=== PATIENT | female | born 1990 | race Caucasian/White ===

== ENCOUNTER 2017-02-04 12:58 | Observation (INO) | payer OTHER ==
[2017-02-04] VITALS (8 sets, daily range): BP systolic 120–145; BP diastolic 63–80; PULSE 65–98; TEMP 98–98.8
[~2017-02-04] VITALS: Ht 165.1 cm; Wt 98.0 kg
[~2017-02-04 12:58] MED LIST: FERROUS SU325 MG/TAB PO; MOTRIN 800800 MG/TAB PO; PERCOCET 325 MG1 TA2 PO; PRENATAL PLUS PO; PRENATAL PO; PROZAC 20MG20 MG PO; SENOKOT S 50 MG1 TAB PO; ZANTAC 150MG T150 MG PO
[2017-02-04] MEDS ORDERED: SPRINTEC 35 MCG1 TAB PO (13:10)
[2017-02-04] MEDS ORDERED: PHENTERMINE15 MG PO (13:10)
[2017-02-04] MEDS ORDERED: SEROQUEL 1100 MG/TAB PO (13:10)
[2017-02-04 14:23] LABS: BASO % 0.3 % (0.0-2.0); EOS # 0.2 (0.0-0.7); EOS % 2.3 % (0-4.0); GRAN # 7.2 (1.4-6.5); GRAN % 70.9 % (42.2-75.2); HEMATOCRIT 40.8 % (37.0-47.0); HEMOGLOBIN 13.8 g/dl (12.5-16.0); LYMPH # 1.9 (1.2-3.4); LYMPH % 18.7 % (20.0-51.0); MEAN CELL VOLUME 88 fl (80.0-100.0); MEAN CORPUSCULAR HEMOGLOBIN 30 pg (27.0-31.0); MEAN CORPUSCULAR HGB CONC 34 g/dl (33.0-37.0); MONO # 0.8 (0.1-0.6); MONO % 7.5 % (1.7-9.3); PLATELET COUNT 232 K/mm3 (130-400); RED BLOOD COUNT 4.63 M/mm3 (4.10-5.30); REDCELL DISTRIBUTION WIDTH-CV 12.9 % (11.5-14.5); WHITE BLOOD COUNT 10.2 K/mm3 (4.8-10.8)
[2017-02-04 14:33] LABS: PH 6 (5-8); SQUAMOUS EPITHELIAL 0-2 /hpf; URINE APPEARANCE Clear; URINE BACTERIA Rare /hpf; URINE BILIRUBIN Negative (NEGATIVE); URINE BLOOD Negative (NEGATIVE); URINE COLOR Straw; URINE GLUCOSE Negative (NEGATIVE); URINE KETONE Negative (NEGATIVE); URINE RBC 0-2 /hpf; URINE UROBILINOGEN Negative (NEGATIVE); URINE WBC 0-2 /hpf
[2017-02-04 14:36] LABS: ADJUSTED CALCIUM 9.1 mg/dL (8.4-10.2); ALBUMIN 4.2 gm/dL (3.5-5.0); BILIRUBIN,TOTAL 0.8 mg/dL (0.0-1.0); C-REACTIVE PROTEIN 1.8 mg/dL (0.0-0.9); CALCIUM 9.3 mg/dL (8.4-10.2); CREATININE, serum 0.72 mg/dL (0.52-1.25); POTASSIUM 3.7 mmol/L (3.4-5.0); TOTAL PROTEIN 7.7 gm/dL (6.4-8.2)
[2017-02-05 02:20] VITALS: BP 97/45; PULSE 93; TEMP 98.1
[2017-02-05 06:13] VITALS: BP 111/54; BP 115/65; PULSE 54; PULSE 74; TEMP 98
[2017-02-05] MEDS ORDERED: PERCOCET 325 MG1 TA2 PO (07:39)
[2017-02-05 08:36] VITALS: BP 99/40; PULSE 77; TEMP 98
== END 2017-02-05 09:30 | disposition home or self-care (01) ==
LOC: COL.ER 12:58 → SURG 16:45
PROVIDERS: Physician Assistant
DX: K35.80 Unspecified acute appendicitis (principal)
CPT/HCPCS: G0378; J1170; J1885; J2270; J2405; J2710; J2765; J3010; J7030; J7120; Q9967

== ENCOUNTER → 2017-03-01 | Outpatient (CLI) | payer BC ==
[~2017-03-01] MED LIST changes: +PHENTERMINE15 MG PO; +SEROQUEL 1100 MG/TAB PO; +SPRINTEC 35 MCG1 TAB PO
== END ==
LOC: COL.RAD 08:10
DX: R51 Headache (principal)
CPT/HCPCS: A9585

== ENCOUNTER 2018-12-08 09:13 | Emergency (ER) | payer BC ==
[~2018-12-08] VITALS: Ht 165.1 cm; Wt 106.6 kg
[2018-12-08 09:19] VITALS: TEMP 97.5
[2018-12-08 10:05] LABS: BASO # 0.1 (0.0-0.2); BASO % 0.7 % (0.0-2.0); EOS # 0.8 (0.0-0.7); EOS % 10.7 % (0-4.0); GRAN # 4.5 (1.4-6.5); GRAN % 60.1 % (42.2-75.2); HEMATOCRIT 44.2 % (37.0-47.0); HEMOGLOBIN 14.6 g/dl (12.5-16.0); LYMPH # 1.6 (1.2-3.4); LYMPH % 21.4 % (20.0-51.0); MEAN CELL VOLUME 89 fl (80.0-100.0); MEAN CORPUSCULAR HEMOGLOBIN 29 pg (27.0-31.0); MEAN CORPUSCULAR HGB CONC 33 g/dl (33.0-37.0); MEAN PLATELET VOLUME 9.2 fl (7.4-10.4); MONO # 0.5 (0.1-0.6); PLATELET COUNT 231 K/mm3 (130-400); RED BLOOD COUNT 4.97 M/mm3 (4.10-5.30); REDCELL DISTRIBUTION WIDTH-CV 13.8 % (11.5-14.5)
[2018-12-08 10:19] LABS: ALBUMIN 4.2 gm/dL (3.5-5.0); BILIRUBIN,TOTAL 0.6 mg/dL (0.0-1.0); CREATININE, serum 0.73 mg/dL (0.52-1.25); POTASSIUM 3.6 mmol/L (3.4-5.0); TOTAL PROTEIN 8.2 gm/dL (6.4-8.2)
[2018-12-08 10:37] LABS: COLLECTION METHOD CLEAN CATCH
[2018-12-08 10:44] LABS: PH 6 (5-8); SQUAMOUS EPITHELIAL 0-2 /hpf; URINE APPEARANCE Clear; URINE BACTERIA None Seen /hpf; URINE BILIRUBIN Negative (NEGATIVE); URINE BLOOD Negative (NEGATIVE); URINE COLOR Amber; URINE GLUCOSE Negative (NEGATIVE); URINE KETONE Negative (NEGATIVE); URINE LEUKOCYTE ESTERASE Negative (NEGATIVE); URINE NITRATE Positive (NEGATIVE); URINE PROTEIN(semi-quant) Negative (NEGATIVE); URINE RBC 0-2 /hpf; URINE UROBILINOGEN Negative (NEGATIVE)
[2018-12-08 12:03] VITALS: BP 116/96; PULSE 88
== END 2018-12-08 12:04 | disposition home or self-care (01) ==
LOC: COL.ER 09:13
PROVIDERS: Nurse Practitioner
DX: R10.84 Generalized abdominal pain (principal); R53.81 Other malaise; R53.82 Chronic fatigue, unspecified; F32.9 Major depressive disorder, single episode, unspecified; F41.9 Anxiety disorder, unspecified; F43.10 Post-traumatic stress disorder, unspecified; Z90.89 Acquired absence of other organs; Z98.890 Other specified postprocedural states; Z88.5 Allergy status to narcotic agent
CPT/HCPCS: J2405; J3010; J7030

== ENCOUNTER 2019-08-26 11:18 | Emergency (ER) | payer BC ==
[~2019-08-26] VITALS: Ht 167.6 cm; Wt 106.8 kg
[2019-08-26 11:22] VITALS: BP 132/76
[2019-08-26] MEDS ORDERED: IMITREX 5MGNAS NS (13:24)
[2019-08-26 14:02] VITALS: PULSE 80; TEMP 97.7
== END 2019-08-26 14:02 | disposition home or self-care (01) ==
LOC: COL.ER 11:18
DX: R51 Headache (principal)
CPT/HCPCS: J0780; J1170; J1200; J1885; J7030

== ENCOUNTER → 2019-09-03 | Outpatient (CLI) | payer BC ==
[~2019-09-03] MED LIST changes: +IMITREX 5MGNAS NS
== END ==
LOC: COL.RAD 07:58
DX: G44.53 Primary thunderclap headache (principal)
CPT/HCPCS: A9585

== ENCOUNTER 2019-09-11 18:15 | Emergency (ER) | payer BC ==
[~2019-09-11] VITALS: Ht 165.1 cm; Wt 109.1 kg
[2019-09-11 18:50] LABS: COLLECTION METHOD CLEAN CATCH
[2019-09-11] MEDS ORDERED: MULTI VITAMINS1 TAB PO (18:55)
[2019-09-11 18:57] LABS: BASO # 0.1 (0.0-0.2); BASO % 0.4 % (0.0-2.0); EOS # 0.2 (0.0-0.7); EOS % 1.7 % (0-4.0); GRAN # 7.8 (1.4-6.5); GRAN % 64.1 % (42.2-75.2); HEMATOCRIT 40.4 % (37.0-47.0); HEMOGLOBIN 13.8 g/dl (12.5-16.0); LYMPH # 3.2 (1.2-3.4); LYMPH % 26.5 % (20.0-51.0); MEAN CELL VOLUME 88 fl (80.0-100.0); MEAN CORPUSCULAR HEMOGLOBIN 30 pg (27.0-31.0); MEAN CORPUSCULAR HGB CONC 34 g/dl (33.0-37.0); MEAN PLATELET VOLUME 9.2 fl (7.4-10.4); MONO # 0.9 (0.1-0.6); MONO % 7.1 % (1.7-9.3); PLATELET COUNT 305 K/mm3 (130-400); RED BLOOD COUNT 4.57 M/mm3 (4.10-5.30)
[2019-09-11 19:00] LABS: PH 8 (5-8); SQUAMOUS EPITHELIAL 0-2 /hpf; URINE APPEARANCE Clear; URINE BACTERIA None Seen /hpf; URINE BILIRUBIN Negative (NEGATIVE); URINE BLOOD Negative (NEGATIVE); URINE COLOR Straw; URINE GLUCOSE Negative (NEGATIVE); URINE KETONE Negative (NEGATIVE); URINE LEUKOCYTE ESTERASE Negative (NEGATIVE); URINE NITRATE Negative (NEGATIVE); URINE PROTEIN(semi-quant) Negative (NEGATIVE); URINE RBC 0-2 /hpf; URINE UROBILINOGEN Negative (NEGATIVE)
[2019-09-11 19:07] LABS: ALANINE AMINOTRANSFERASE 21 U/L (9-52); ALBUMIN 4.9 gm/dL (3.5-5.0); ALKALINE PHOSPHATASE 95 U/L (50-136); ANION GAP 14 mmol/L (7-16); AST,SGOT 28 U/L (15-37); BILIRUBIN,TOTAL 0.5 mg/dL (0.0-1.0); BLOOD UREA NITROGEN 10 mg/dL (7-17); CALCIUM 9.8 mg/dL (8.4-10.2); CARBON DIOXIDE 24 mmol/L (22-30); CHLORIDE 103 mmol/L (98-107); CREATININE, serum 0.74 (0.52-1.25); GLUCOSE 109 mg/dL (74-106); LIPASE 69 U/L (23-300); POTASSIUM 3.4 mmol/L (3.4-5.0); SODIUM 141 mmol/L (137-145); TOTAL PROTEIN 8.8 gm/dL (6.4-8.2)
[2019-09-11 19:21] LABS: TROPONIN-I < 0.012 ng/mL (0.000-0.035)
[2019-09-11] MEDS ORDERED: ATIVAN 0.50.5 MG/TAB PO (22:00)
[2019-09-11 22:20] VITALS: BP 110/87; PULSE 86; TEMP 98.2
== END 2019-09-11 22:20 | disposition home or self-care (01) ==
LOC: COL.ER 18:15
PROVIDERS: Emergency Medicine
DX: F41.9 Anxiety disorder, unspecified (principal); R06.00 Dyspnea, unspecified; R07.89 Other chest pain; F32.9 Major depressive disorder, single episode, unspecified; F43.10 Post-traumatic stress disorder, unspecified; Z90.49 Acquired absence of other specified parts of digestive tract

== ENCOUNTER 2019-12-23 19:17 | Emergency (ER) | payer BC ==
[~2019-12-23] VITALS: Ht 165.1 cm; Wt 97.7 kg
[~2019-12-23 19:17] MED LIST changes: +ATIVAN 0.50.5 MG/TAB PO; +MULTI VITAMINS1 TAB PO; +PRILOSEC10 MG PO
[2019-12-23 19:33] VITALS: BP 120/82; TEMP 97.8
[2019-12-23 20:25] LABS: COLLECTION METHOD CLEAN CATCH
[2019-12-23 20:28] LABS: BASO # 0.1 (0.0-0.2); BASO % 0.8 % (0.0-2.0); EOS # 0.7 (0.0-0.7); EOS % 9.4 % (0-4.0); GRAN # 3.2 (1.4-6.5); GRAN % 41.6 % (42.2-75.2); HEMATOCRIT 42.2 % (37.0-47.0); HEMOGLOBIN 13.8 g/dl (12.5-16.0); LYMPH # 2.9 (1.2-3.4); LYMPH % 38.1 % (20.0-51.0); MEAN CELL VOLUME 90 fl (80.0-100.0); MEAN CORPUSCULAR HEMOGLOBIN 30 pg (27.0-31.0); MEAN CORPUSCULAR HGB CONC 33 g/dl (33.0-37.0); MEAN PLATELET VOLUME 10.2 fl (7.4-10.4); MONO # 0.8 (0.1-0.6); PLATELET COUNT 186 K/mm3 (130-400); RED BLOOD COUNT 4.68 M/mm3 (4.10-5.30); REDCELL DISTRIBUTION WIDTH-CV 14.9 % (11.5-14.5)
[2019-12-23 20:31] LABS: PH 5 (5-8); URINE APPEARANCE Hazy; URINE BACTERIA None Seen /hpf; URINE BILIRUBIN Negative (NEGATIVE); URINE BLOOD 3+ (NEGATIVE); URINE COLOR Yellow; URINE GLUCOSE Negative (NEGATIVE); URINE KETONE 2+ (NEGATIVE); URINE LEUKOCYTE ESTERASE Negative (NEGATIVE); URINE NITRATE Negative (NEGATIVE); URINE PROTEIN(semi-quant) Negative (NEGATIVE); URINE RBC 0-2 /hpf
[2019-12-23 20:56] LABS: ALANINE AMINOTRANSFERASE 17 U/L (9-52); ALBUMIN 4.3 gm/dL (3.5-5.0); ALKALINE PHOSPHATASE 67 U/L (50-136); ANION GAP 13 mmol/L (7-16); AST,SGOT 25 U/L (15-37); BILIRUBIN,TOTAL 0.6 mg/dL (0.0-1.0); BLOOD UREA NITROGEN 8 mg/dL (7-17); CALCIUM 9.4 mg/dL (8.4-10.2); CARBON DIOXIDE 24 mmol/L (22-30); CHLORIDE 105 mmol/L (98-107); CREATININE, serum 0.52 (0.52-1.25); GLUCOSE 86 mg/dL (74-106); LIPASE 153 U/L (23-300); POTASSIUM 4.3 mmol/L (3.4-5.0); SODIUM 141 mmol/L (137-145); TOTAL PROTEIN 7.9 gm/dL (6.4-8.2)
[2019-12-23 21:10] LABS: C-REACTIVE PROTEIN < 0.5 mg/dL (0.0-0.9)
[2019-12-23] MEDS ORDERED: BENTYL 20MG20 MG/TAB PO (22:12)
[2019-12-23 22:18] VITALS: PULSE 72
== END 2019-12-23 22:20 | disposition home or self-care (01) ==
LOC: COL.ER 19:17
PROVIDERS: Emergency Medicine
DX: K59.00 Constipation, unspecified (principal); F41.9 Anxiety disorder, unspecified; F43.10 Post-traumatic stress disorder, unspecified; Z90.89 Acquired absence of other organs; Z98.84 Bariatric surgery status
CPT/HCPCS: J1885; J2405

== ENCOUNTER 2019-12-25 19:26 | Observation (INO) | payer BC ==
[~2019-12-25] VITALS: Ht 165.1 cm; Wt 98.8 kg
[~2019-12-25 19:26] MED LIST changes: +BENTYL 20MG20 MG/TAB PO
[2019-12-25 20:13] LABS: BASO % 0.4 % (0.0-2.0); EOS # 0.5 (0.0-0.7); EOS % 5.4 % (0-4.0); GRAN # 5.3 (1.4-6.5); GRAN % 57.7 % (42.2-75.2); HEMATOCRIT 44.1 % (37.0-47.0); HEMOGLOBIN 14.7 g/dl (12.5-16.0); LYMPH # 2.5 (1.2-3.4); LYMPH % 27.2 % (20.0-51.0); MEAN CELL VOLUME 89 fl (80.0-100.0); MEAN CORPUSCULAR HEMOGLOBIN 30 pg (27.0-31.0); MEAN CORPUSCULAR HGB CONC 33 g/dl (33.0-37.0); MONO # 0.8 (0.1-0.6); MONO % 9.1 % (1.7-9.3); PLATELET COUNT 188 K/mm3 (130-400); RED BLOOD COUNT 4.95 M/mm3 (4.10-5.30)
[2019-12-25 20:22] LABS: ALBUMIN 4.6 gm/dL (3.5-5.0); BILIRUBIN,TOTAL 0.8 mg/dL (0.0-1.0); CALCIUM 10.4 mg/dL (8.4-10.2); CREATININE, serum 0.59 (0.52-1.25); POTASSIUM 4.3 mmol/L (3.4-5.0); TOTAL PROTEIN 8.4 gm/dL (6.4-8.2)
[2019-12-25 22:12] LABS: COLLECTION METHOD CLEAN CATCH
[2019-12-25 22:20] LABS: MUCOUS Present /lpf; PH 5 (5-8); URINE APPEARANCE Clear; URINE BACTERIA None Seen /hpf; URINE BILIRUBIN Negative (NEGATIVE); URINE BLOOD 2+ (NEGATIVE); URINE COLOR Straw; URINE GLUCOSE Negative (NEGATIVE); URINE KETONE 2+ (NEGATIVE); URINE LEUKOCYTE ESTERASE Negative (NEGATIVE); URINE NITRATE Negative (NEGATIVE); URINE PROTEIN(semi-quant) Negative (NEGATIVE); URINE RBC 0-2 /hpf; URINE UROBILINOGEN Negative (NEGATIVE)
[2019-12-25] MEDS ORDERED: ULTRAM 50MG TAB50 MG PO (22:32)
[2019-12-25 23:22] VITALS: BP 110/67; PULSE 80; TEMP 98.1
[2019-12-25] MEDS ORDERED: CALCIUM CARBON650 M2 (23:37)
[2019-12-26 04:25] VITALS: BP 91/42; PULSE 81; TEMP 97.7
--- NOTE | 2019-12-26 06:26 | NUR ---
Pt currently restin in bed, pt has her at bedside. No complaints ot this time. Call light is within reach and bed is in lowest position
[2019-12-26 06:53] LABS: BASO # 0.1 (0.0-0.2); BASO % 0.8 % (0.0-2.0); EOS # 0.5 (0.0-0.7); EOS % 6.9 % (0-4.0); GRAN # 2.5 (1.4-6.5); LYMPH # 2.9 (1.2-3.4); LYMPH % 43.4 % (20.0-51.0); MEAN CELL VOLUME 92 fl (80.0-100.0); MEAN CORPUSCULAR HGB CONC 32 g/dl (33.0-37.0); MEAN PLATELET VOLUME 10.5 fl (7.4-10.4); MONO # 0.7 (0.1-0.6); MONO % 10.7 % (1.7-9.3); PLATELET COUNT 153 K/mm3 (130-400); RED BLOOD COUNT 3.92 M/mm3 (4.10-5.30); REDCELL DISTRIBUTION WIDTH-CV 15.2 % (11.5-14.5)
[2019-12-26 07:00] LABS: ALBUMIN 3.2 gm/dL (3.5-5.0); BILIRUBIN,TOTAL 0.3 mg/dL (0.0-1.0); CALCIUM 8.7 mg/dL (8.4-10.2); CREATININE, serum 0.44 (0.52-1.25); HEMATOCRIT 36.1 % (37.0-47.0); HEMOGLOBIN 11.6 g/dl (12.5-16.0); MEAN CORPUSCULAR HEMOGLOBIN 30 pg (27.0-31.0); POTASSIUM 3.8 mmol/L (3.4-5.0); TOTAL PROTEIN 6.4 gm/dL (6.4-8.2)
[2019-12-26 07:10] VITALS: BP 96/54; PULSE 76; TEMP 98.1
--- NOTE | 2019-12-26 07:15 | NUR ---
Patient requests PRN pain medication but car shifter nurse reports that patient was hypotensive. Re check indicates blood pressure is imporoved, administered PRN pain medication per order. Patient requests PRN promethazine, inform patient that medication can only be given every 6 hours, offer zofran. Patient declines, stating that it is ineffective. Patient denies further needs at this time, call light within reach.
[2019-12-26] MEDS ORDERED: PRILOSEC 20MG20 MG PO (11:13)
[2019-12-26] MEDS ORDERED: CARAFATE S1 GM/10 ML PO (12:26)
[2019-12-26] MEDS ORDERED: PERCOCET 325 MG1 TA2 PO (12:26)
--- NOTE | 2019-12-26 12:28 | NUR ---
Plan: To return to [place] with [facility]: Educated on support services/ community services. Assess: Patient reports that she resides with her spouse who will also transport home. PCP is reported as Dr. Bryson Cadet. Patient denies having any DME uses, Patient reports that she prefers [facility] for RX. Patient reported concerns, SW educated on how to respond and notified House Nurse of patient concerns. Will continue to follow for support in care.
[2019-12-26 12:34] VITALS: BP 106/61; PULSE 78; TEMP 98.1
--- NOTE | 2019-12-26 12:57 | NUR ---
Computer Engineering Professor offered prayer and support with patient while spouse was in room.
[2019-12-26 15:58] VITALS: BP 112/72; PULSE 77; TEMP 98.4
--- NOTE | 2019-12-26 17:45 | NUR ---
Discharge teaching completed. Discussed discharge diet and activity, and importance of making and keeping follow up appointment. Discussed discharge medications. Patient denied questions or further needs. IV removed, catheter intact, hemostasis achieved. Patient and significant other escorted to ED entrance where patient entered a private vehicle.
--- NOTE | 2019-12-26 18:20 | NUR ---
Patient called to report that the pharmacy her medications were e scribed to did not carry carafate. Patient reports that she is unable to check at other pharmacies as she could not find any others that were open. After speaking with Dr. Gold and the cook house laborer informed patient that she could come back and pecan picker two doses so she could take the medication as ordered until pharmacies open in the morning. Patient states she will return for the medication shortly.
== END 2019-12-26 17:43 | disposition home or self-care (01) ==
LOC: COL.ER 19:26 → MEDICAL 22:38 → SURG 23:22
PROVIDERS: Emergency Medicine; ADMIT Surgery
DX: R10.9 Unspecified abdominal pain (principal); Z88.5 Allergy status to narcotic agent
CPT/HCPCS: C9113; G0378; J1170; J2405; J2550; J7030; J7120; Q9967

== ENCOUNTER → 2020-03-02 | Outpatient (CLI) | payer BC ==
[~2020-03-02] MED LIST changes: +CALCIUM CARBON650 M2; +CARAFATE S1 GM/10 ML PO; +PRILOSEC 20MG20 MG PO; +ULTRAM 50MG TAB50 MG PO
== END ==
LOC: COL.RAD 07:04
DX: K76.89 Other specified diseases of liver (principal)